=== PATIENT | male | born 1955 | race Caucasian/White ===

== ENCOUNTER 2016-12-08 10:25 | Outpatient (CLI) | payer OTHER ==
[~2016-12-08 10:25] MED LIST: LISINOPRIL10 MG PO; NORCO1 TA1 PO; SIMVASTATIN20 MG PO
--- NOTE | 2016-12-08 13:01 | DIAGNOSTIC IMAGING REPORT ---
PROCEDURE: US KIDNEY/RENAL COMPLETE INDICATION: CHRONIC KIDNEY DISEASE;HYPERNATREMIA TECHNIQUE: Dietrich scale and color Doppler sonographic imaging of the kidneys and urinary bladder was obtained. Intrarenal resistive indices were calculated when appropriate. COMPARISON: Renal ultrasound 12/10/2013 FINDINGS: The right kidney measures 11.4 x 6.1 x 5.6 cm Normal cortical thickness and echogenicity. There is 7 mm renal cyst. Normal color Doppler blood flow throughout the kidney. Resistive indices in the intrarenal parenchymal arteries range from 0.58-0.65 The left kidney measures 11.8 x 6.1 x 6.6 cm Normal cortical thickness and echogenicity. No hydronephrosis, cyst, solid mass, or shadowing calculus. Normal color Doppler blood flow throughout the kidney. Resistive indices in the intrarenal parenchymal arteries range from 0.875-0.78 The filled urinary bladder has a volume of 70 ml and a post void residual of 6 ml The urinary bladder wall is uniform in thickness without suspicious thickening or irregularity. No bladder debris, calcification or mass. Bilateral ureteral jets were visible indicating ureteral patency. IMPRESSION: 1. Normal renal morphology. 2. No change from 12/10/2013 renal ultrasound
--- NOTE | 2016-12-08 17:01 | DIAGNOSTIC IMAGING REPORT ---
PROCEDURE: US ECHOCARDIOGRAM INDICATION: Aortic insufficiency TECHNIQUE: There is a comprehensive adult transthoracic echocardiogram. The technical quality is suboptimal in part because the patient was tachycardic during the beginning of the study either in atrial flutter, supraventricular tachycardia versus sinus tachycardia. The patient converted to normal sinus rhythm at the end of the study but unfortunately the images from the beginning of the study were not repeated. COMPARISON: None FINDINGS: Left ventricle size appears normal. There is severe septal hypertrophy measuring 2.2 cm. The posterior wall was also measured at 2.2 cm although visually appears to be approximately 1.5 cm. There is a outflow tract gradient with a peak gradient of 54 mmHg mean gradient of 34 mmHg. Left ventricular ejection fraction is normal in 63%. Diastolic function cannot be assessed on this study. Chordal KISHORE noted. Right ventricle grossly normal in size and function. The left atrium mildly dilated. Right atrium normal size. Aortic valve. Valve is not well visualized. Cannot determine with certainty whether this is a tricuspid or bicuspid valve. There appears to be severe aortic valve insufficiency. The pressure gradient across the valve appears to be related to outflow tract gradient. The valve does not appears stenotic. Mitral valve: Normal in structure and function with trace physiologic insufficiency. Tricuspid valve: Grossly normal in structure and function with trace physiologic insufficiency. Pulmonary artery pressures cannot be accurately evaluated with the study. Pulmonic valve: Not well visualized and appears to have grossly normal function. Pericardium: No pericardial effusion present. Aorta: ascending aorta is mildly dilated at 3.9 cm. IMPRESSION: Technically poor study as the patient was in the supraventricular tachycardia at the beginning of the study and the images are not repeated once converted to sinus rhythm. Recommend that study be repeated to adequately evaluate left ventricle, outflow tract gradient and aortic valve. Normal left ventricular ejection fraction Severe septal hypertrophy with moderately elevated outflow tract gradient. Coronal KISHORE also present. Aortic valve not well visualized. There appears to be severe aortic valve insufficiency present. Mildly dilated ascending aorta
== END 2016-12-08 23:00 | disposition home or self-care (01) ==
LOC: US SRH 10:25
DX: R00.0 Tachycardia, unspecified (principal); N18.9 Chronic kidney disease, unspecified; E87.0 Hyperosmolality and hypernatremia

== ENCOUNTER 2016-12-09 13:16 | Outpatient (CLI) | payer OTHER ==
--- NOTE | 2016-12-09 15:55 | DIAGNOSTIC IMAGING REPORT ---
PROCEDURE: US ECHOCARDIOGRAM LIMITED INDICATION: RE EVAL AORTIC VALVE COMPARISON: Echo from 12/08/16 FINDINGS: Study appears to be recorded in normal sinus rhythm by examination of telemetry strip during echo procedure. The peak aortic valve velocity 1.7 meters per second. Aortic valve itself is not well visualized but there is no indication that this is a bicuspid valve. No significant sclerosis. Moderate 2 + aortic regurgitation is present. No Valsalva maneuver appears to have been performed. IMPRESSION: 1. No significant aortic stenosis. Moderate aortic valve regurgitation. No Valsalva induced LV outflow tract gradient assessment was performed for this limited study.
== END 2016-12-09 23:00 | disposition home or self-care (01) ==
LOC: US SRH 13:16
DX: I35.1 Nonrheumatic aortic (valve) insufficiency (principal)